=== PATIENT | female | born 1985 | race Caucasian/White ===

== ENCOUNTER 2018-07-27 10:37 | Day surgery (SDC) | payer OTHER ==
[~2018-07-27] VITALS: Ht 157.5 cm; Wt 54.6 kg
[~2018-07-27 10:37] MED LIST: ADDE30CA3 PO; PANT40TA3 PO
[2018-07-27] MEDS ORDERED: fentaNYL 100 MCG/2 ML INJECTION (J3010) As Ordered ONE (12:44)
[2018-07-27] MEDS ORDERED: NS 1,000 ML IV ONE (12:45)
--- NOTE | 2018-07-27 13:10 | ROOR ---
Patient Name: Radha Oshea Procedure Date: 07/27/2018 12:41 PM Date of : 1985 Age: 32 Room: [facility] Gender: Female Note Status: Finalized Procedure: Upper GI endoscopy Indications: Heartburn, Suspected gastro-esophageal reflux disease Providers: Tyrone Jj MD Referring MD: KB KING MD Requesting Provider: Medicines: Monitored Anesthesia Care Complications: No immediate complications. Procedure: Pre-Anesthesia Assessment: - Prior to the procedure, a History and Physical was performed, and patient medications and allergies were reviewed. The patient is competent. The risks and benefits of the procedure and the sedation options and risks were discussed with the patient. All questions were answered and informed consent was obtained. Patient identification and proposed procedure were verified by the physician, the nurse and the anesthesiologist in the procedure room. Mental Status Examination: alert and oriented. Airway Examination: normal oropharyngeal airway and neck mobility. Respiratory Examination: clear to auscultation. CV Examination: normal. Prophylactic Antibiotics: The patient does not require prophylactic antibiotics. Prior Anticoagulants: The patient has taken no previous anticoagulant or antiplatelet agents. ASA Grade Assessment: II - A patient with mild systemic disease. After reviewing the risks and benefits, the patient was deemed in satisfactory condition to undergo the procedure. The anesthesia plan was to use monitored anesthesia care (MAC). Immediately prior to administration of medications, the patient was re-assessed for adequacy to receive sedatives. The heart rate, respiratory rate, oxygen saturations, blood pressure, adequacy of pulmonary ventilation, and response to care were monitored throughout the procedure. The physical status of the patient was re-assessed after the procedure. The Endoscope was introduced through the mouth, and advanced to the second part of duodenum. The upper GI endoscopy was accomplished without difficulty. The patient tolerated the procedure well. Findings: The examined esophagus was normal. The Z-line was regular and was found 38 cm from the incisors. Patchy mild inflammation characterized by erythema and granularity was found in the gastric body and in the gastric antrum. Biopsies were taken with a cold forceps for Helicobacter pylori testing. Verification of patient identification for the specimen was done by the physician and nurse using the patient's name, date and medical record number. Estimated blood loss was minimal. The duodenal bulb and second portion of the duodenum were normal. Impression: - Normal esophagus. - Z-line regular, 38 cm from the incisors. - Gastritis. Biopsied. - Normal duodenal bulb and second portion of the duodenum. Recommendation: - Patient has a contact number available for emergencies. The signs and symptoms of potential delayed complications were discussed with the patient. Return to normal activities tomorrow. Written discharge instructions were provided to the patient. - Resume previous diet. - Continue present medications. - Await pathology results. - Based on the biopsy results you will receive a phone call from GI clinic in 2-3 weeks to review the pathology results AND/OR your results will be faxed to your Primary care physician. - Return to primary care physician. Tyrone Jj MD Tyrone Jj MD 07/27/2018 1:10:38 PM This report has been signed electronically. Number of Addenda: 0 Note Initiated On: 07/27/2018 12:41 PM Estimated Blood Loss: Estimated blood loss was minimal.
[2018-07-27 13:20] VITALS: BP 138/81
== END 2018-07-27 13:34 | disposition home or self-care (01) ==
LOC: M OPP 10:37
PROVIDERS: ATTEND Internal Medicine Gastroenterology
DX: K29.70 Gastritis, unspecified, without bleeding (principal); R14.2 Eructation; R12 Heartburn; Z79.899 Other long term (current) drug therapy; F17.210 Nicotine dependence, cigarettes, uncomplicated
CPT/HCPCS: 43239; 88305; J3010

== ENCOUNTER → 2018-09-30 | Outpatient (CLI) | payer OTHER ==
[2018-09-30 14:43] LABS: BASO % 0.4 % (0.0-1.0); EOS % 0.1 % (0.0-3.0); HEMATOCRIT 40.3 % (36.0-47.0); HEMOGLOBIN 13.2 g/dl (12.0-15.5); LYMPH # 1.8 10^3/uL (1.5-4.5); LYMPH % 25.5 % (24.0-44.0); MEAN CORPUSCULAR HEMOGLOBIN 31.4 pg (27.0-33.0); MEAN CORPUSCULAR HGB CONC 32.8 g/dl (32.0-36.5); MEAN CORPUSCULAR VOLUME 95.7 fl (80.0-96.0); MONO # 0.4 10^3/uL (0.0-0.8); MONO % 5.4 % (0.0-5.0); NEUTROPHILS # 4.7 10^3/uL (1.8-7.7); NEUTROPHILS % 68.2 % (36.0-66.0); PLATELET COUNT, AUTOMATED 324 10^3/uL (150-450); RED BLOOD COUNT 4.21 10^6/uL (4.00-5.40); WHITE BLOOD COUNT 6.9 10^3/uL (4.0-10.0)
[2018-09-30 15:16] LABS: ALBUMIN 4.1 GM/DL (3.2-5.2); ALT/SGPT 19 U/L (12-78); BILIRUBIN,DIRECT < 0.1 MG/DL (0.0-0.2); BILIRUBIN,TOTAL 0.3 MG/DL (0.2-1.0); FERRITIN 18 NG/ML (8-252); IRON (FE) 64 UG/DL (50-170); PERCENT SATURATION 20.3 % (13.2-45.0); TOTAL IRON BINDING CAPACITY 316 UG/DL (250-450); TOTAL PROTEIN 7.1 GM/DL (6.4-8.2)
[2018-09-30 15:21] LABS: VITAMIN B12 LEVEL 335 PG/ML
[2018-09-30 15:23] LABS: FOLATE 14.5 NG/ML
[2018-09-30 15:48] LABS: H PYLORI QUALITATIVE IgG NEGATIVE (NEGATIVE)
== END ==
LOC: M LAB 14:06
PROVIDERS: ATTEND Internal Medicine Gastroenterology
DX: R14.0 Abdominal distension (gaseous) (principal)

== ENCOUNTER → 2018-12-31 | Outpatient (CLI) | payer OTHER ==
[~2018-12-31] MED LIST changes: +GASTROGRAFIN SOLUTION 30ML (Q9963) As Ordered ONE; +ISOVUE-370 76% 100ML VIAL (Q9967) As Ordered ONE
--- NOTE | 2018-12-31 13:01 | REP ---
CT ABDOMEN AND PELVIS WITH IV AND ORAL CONTRAST: 12/31/2018. Clinical history: Eructation. Technique: Oral Gastrografin mixture per our protocol and bolus 100 mL Isovue 370 given scanning through the abdomen and pelvis with coronal and sagittal reconstructions. Findings: CT abdomen: No prior studies. The lung bases are clear. Heart is not enlarged and no pericardial thickening or effusion. I see no hiatal hernia. No hepatosplenomegaly, focal hepatic or splenic mass, intrahepatic biliary dilatation nor ascites. Gallbladder without calcified stone or mass. Pancreas is grossly unremarkable. Stomach without abnormal distension. No abnormal wall thickening or mass. Stool and gas in the abdominal portion of the colon without colitis or diverticulitis. Small bowel loops fluid-filled but without distension or air-fluid levels. The aorta is unremarkable. No periaortic, retroperitoneal or mesenteric pathologic sized lymphadenopathy. Kidneys show function without obstruction, stone, mass or other acute finding. Bone windows show lumbar and lower thoracic spine with lower ribs intact. 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 No fracture, pelvic or hip abnormality otherwise. Bladder only partially filled but no wall thickening, mass, or stone and no ureteral dilatation or stone. Uterus anteverted, not enlarged. A 2.1 cm dominant follicle in the left ovary (2.5 cm defines a cyst). The distal left colon, sigmoid and rectum without acute finding. No pelvic free fluid or adenopathy. Small bowel loops deep pelvis unremarkable. No inflammatory changes about the cecum. I see no ventral or inguinal hernia nor inguinal or pelvic adenopathy. Impression: 1. No hiatal hernia, signs of gastric outlet obstruction, abdominal or pelvic colonic or small bowel dilatation or inflammatory change. 2. No ascites or adenopathy. 3. No pelvic free fluid. There was a 2.1 cm dominant follicle in the left ovary. Otherwise unremarkable. Electronically Signed by Jac Heller MD 12/31/2018 03:06 P
== END ==
LOC: M RAD 08:02
PROVIDERS: ATTEND Internal Medicine Gastroenterology
DX: R14.2 Eructation (principal)
CPT/HCPCS: 74177; Q9963; Q9967

== ENCOUNTER → 2019-04-20 | Outpatient (REF) | payer OTHER ==
[~2019-04-20] MED LIST changes: -GASTROGRAFIN SOLUTION 30ML (Q9963) As Ordered ONE; -ISOVUE-370 76% 100ML VIAL (Q9967) As Ordered ONE
[2019-04-27 16:09] LABS: HPV HYBRID CAPTURE II Negative (Negative)
== END ==
LOC: M LAB LCGH 11:21
PROVIDERS: ATTEND Obstetrics & Gynecology
DX: Z72.51 High risk heterosexual behavior (principal)

== ENCOUNTER → 2019-07-25 | Outpatient (REF) | payer OTHER ==
[2019-07-25 14:03] LABS: BASO % 0.4 % (0.0-1.0); HEMATOCRIT 40.4 % (36.0-47.0); HEMOGLOBIN 13.4 g/dl (12.0-15.5); LYMPH # 1.3 10^3/uL (1.5-5.0); LYMPH % 18.5 % (24.0-44.0); MEAN CORPUSCULAR HEMOGLOBIN 31.2 pg (27.0-33.0); MEAN CORPUSCULAR HGB CONC 33.2 g/dl (32.0-36.5); MONO # 0.4 10^3/uL (0.0-0.8); MONO % 5.2 % (0.0-5.0); NEUTROPHILS # 5.4 10^3/uL (1.5-8.5); NEUTROPHILS % 75.3 % (36.0-66.0); PLATELET COUNT, AUTOMATED 294 10^3/uL (150-450); WHITE BLOOD COUNT 7.2 10^3/uL (4.0-10.0)
[2019-07-25 14:24] LABS: ALT/SGPT 19 U/L (12-78); BILIRUBIN,TOTAL 0.3 MG/DL (0.2-1.0); BLOOD UREA NITROGEN 13 MG/DL (7-18); CALCIUM LEVEL 8.7 MG/DL (8.5-10.1); CARBON DIOXIDE LEVEL 27 MEQ/L (21-32); CHLORIDE LEVEL 105 MEQ/L (98-107); CREATININE FOR GFR 0.66 MG/DL (0.55-1.30); GLOMERULAR FILTRATION RATE > 60.0 (>60); GLUCOSE, FASTING 105 MG/DL (70-100); POTASSIUM SERUM 3.8 MEQ/L (3.5-5.1); RHEUMATOID FACTOR QUANT < 10.0 IU/ML (<15.0); SODIUM LEVEL 138 MEQ/L (136-145); TOTAL 25(OH) VITAMIN D 29.8 NG/ML (30.0-100.0); TOTAL PROTEIN 7.3 GM/DL (6.4-8.2)
[2019-07-25 14:25] LABS: FOLATE 17.3 NG/ML; VITAMIN B12 LEVEL 629 PG/ML
[2019-07-25 14:31] LABS: ERYTHROCYTE SEDIMENTATION RATE 4 mm/hr (0-20)
[2019-07-25 14:56] LABS: HEMOGLOBIN A1c 5.3 %
[2019-07-26 10:57] LABS: DRVV SCREEN 35.1 SEC; PTT LUPUS TYPE ANTICOAG SCREEN 0.9 (0-1.2)
[2019-07-26 11:37] LABS: ALPHA-1-GLOBULIN % 4.2 % (2.9-4.9); ALPHA-2-GLOBULINS % 9.6 % (7.1-11.8); BETA-1-GLOBULINS % 6.4 % (4.7-7.2)
[2019-07-26 11:38] LABS: ALBUMIN 4.38 GM/DL (3.29-5.55); ALPHA-1-GLOBULINS 0.31 GM/DL (0.17-0.41); BETA-1-GLOBULINS 0.47 GM/DL (0.28-0.60); BETA-2-GLOBULINS 0.37 GM/DL (0.19-0.55); GAMMA GLOBULIN % 14.8 % (11.1-18.8); GAMMA GLOBULINS 1.08 GM/DL (0.65-1.58)
== END ==
LOC: M LABNEURO 08:55
PROVIDERS: ATTEND Psychiatry & Neurology Neurology
DX: G90.09 Other idiopathic peripheral autonomic neuropathy (principal)

== ENCOUNTER → 2022-09-15 | Outpatient (REF) | payer OTHER ==
[~2022-09-15] MED LIST changes: +PANT40TA29 PO; -PANT40TA3 PO
== END ==
LOC: M SFHCDERM 17:43
PROVIDERS: ATTEND Nurse Practitioner Family
DX: L82.0 Inflamed seborrheic keratosis (principal); D22.5 Melanocytic nevi of trunk; D23.72 Other benign neoplasm of skin of left lower limb, including hip; D22.72 Melanocytic nevi of left lower limb, including hip

== ENCOUNTER → 2022-10-14 | Outpatient (REF) | payer OTHER | LOC: M LAB REF 17:25 | PROVIDERS: ATTEND Surgery | DX: L90.5 Scar conditions and fibrosis of skin (principal) ==